=== PATIENT | female | born 1935 | race Caucasian/White ===

== ENCOUNTER 2017-10-25 09:33 | Outpatient (CLI) | payer MEDICARE ==
[~2017-10-25 09:33] MED LIST: ISOVUE-370 76%-LOCM 1 ML ONE
== END 2017-10-25 09:34 | disposition home or self-care (01) ==
LOC: BICCT 09:33
PROVIDERS: ATTEND Internal Medicine Cardiovascular Disease
DX: I73.9 Peripheral vascular disease, unspecified (principal); I77.810 Thoracic aortic ectasia; I70.0 Atherosclerosis of aorta; I77.1 Stricture of artery
CPT/HCPCS: 71275; 74174

== ENCOUNTER 2019-09-21 11:08 | Outpatient (CLI) | payer MEDICARE ==
--- NOTE | 2019-09-21 11:43 | RAD ---
LUMBAR SPINE SERIES 4 VIEWS: Date: 09/21/2019 HISTORY: Low back pain with pain down left leg. FINDINGS: Severe arthritic changes of the spine with marked degenerative disc narrowing at all vertebral body l evels and prominent osteophytic change. Slight scoliotic change to the spine is noted. Prominent dege nerative facet changes are noted. There are extensive vascular calcifications. IMPRESSION: Severe osteoarthritic changes of the spine. POS: [id number]
== END 2019-09-21 11:09 | disposition home or self-care (01) ==
LOC: TBSIIMAG 11:08
PROVIDERS: ATTEND Surgery
DX: M54.5 Low back pain (principal); M47.816 Spondylosis without myelopathy or radiculopathy, lumbar region
CPT/HCPCS: 72110

== ENCOUNTER 2019-10-12 08:57 | Outpatient (CLI) | payer MEDICARE ==
--- NOTE | 2019-10-12 10:25 | MRI ---
MR the lumbar spine without contrast: 10/12/2019 History: Low back pain extending down the left leg, lower extremity radiculopathy COMPARISON: None TECHNIQUE: Multiplanar multisequence MR images were obtained of lumbar spine without IV contrast FINDINGS: On the basis of 5 lumbar type vertebral bodies, conus medullaris terminates at theL1-2 level. Sagittal STIR imaging demonstrates no significant focal area of osseous marrow edema. Mild anterolisthesis at L4-5 measures 6 mm. T12-L1:There is disc space narrowing with disc desiccation. There is disc bulge with a small central disc herniation with slight superior migration. Mild associated central canal stenosis. Bilateral facet hypertrophy with mild bilateral neural foraminal stenosis. L1-2:Anterior and right lateral osteophyte formation. Bilateral facet hypertrophy. There is disc spac e narrowing with disc desiccation. There is a disc osteophyte complex with mild central canal stenosis. Mild left and moderate/severe right neural foraminal stenosis. L2-3:Bilateral facet hypertrophy and hypertrophy of the ligamentum flavum. Disc space narrowing with disc desiccation and disc bulge. Severe central canal stenosis with mass effect upon the nerve roots of the cauda equina. Mild right and moderate left neural foraminal stenosis. L3-4:Disc space narrowing with disc desiccation and vacuum disc formation. Disc bulge with severe jana tral canal stenosis. Prominent bilateral facet hypertrophy. Mild right and moderate left neural foraminal stenosis. L4-5:There is disc space narrowing with disc desiccation and disc bulge. Prominent bilateral facet hy pertrophy and hypertrophy of the ligamentum flavum. Severe central canal stenosis with mass effect upon nerve roots of the cauda equina. Mild/moderate bilateral neural foraminal stenosis. L5-S1:There is disc space narrowing with disc desiccation. Bilateral facet hypertrophy. Small central disc protrusion. Mild central canal stenosis. Severe right and mild left neural foraminal stenosis. Image retroperitoneal structures demonstratea T2 hyperintense lesion emanating from the upper pole of the left kidney measuring 5.5 cm, consistent with renal cyst. Additional medial lower pole left renal cyst measures 3.3 cm. IMPRESSION: Multilevel severe degenerative changes are noted within the lumbar spine as detailed above. This incl udes multilevel severe central canal stenosis at L2-3, L3-4, L4-5, as well as areas of multilevel neural foraminal stenosis.
== END 2019-10-12 08:58 | disposition home or self-care (01) ==
LOC: TBSIIMAG 08:57
PROVIDERS: ATTEND Physician Assistant Surgical
DX: M47.26 Other spondylosis with radiculopathy, lumbar region (principal); M48.061 Spinal stenosis, lumbar region without neurogenic claudication; M48.07 Spinal stenosis, lumbosacral region; M48.05 Spinal stenosis, thoracolumbar region
CPT/HCPCS: 72110; 72148

== ENCOUNTER 2021-01-06 07:46 | Outpatient (CLI) | payer MEDICARE | END 2021-01-06 07:47 | disposition home or self-care (01) | LOC: TBSIIMAG 07:46 | PROVIDERS: ATTEND Surgery | DX: M47.26 Other spondylosis with radiculopathy, lumbar region (principal); M48.061 Spinal stenosis, lumbar region without neurogenic claudication | CPT/HCPCS: 72148 ==

== ENCOUNTER 2021-09-10 08:00 | Outpatient (CLI) | payer MEDICARE | END 2021-09-10 08:01 | disposition home or self-care (01) | LOC: TBSIIMAG 08:00 | PROVIDERS: ATTEND Surgery | DX: M47.26 Other spondylosis with radiculopathy, lumbar region (principal); M48.062 Spinal stenosis, lumbar region with neurogenic claudication; M47.817 Spondylosis without myelopathy or radiculopathy, lumbosacral region | CPT/HCPCS: 72148 ==

== ENCOUNTER 2021-10-19 11:41 | Outpatient (CLI) | payer MEDICARE ==
[2021-10-19 13:06] LABS: Hemoglobin 10.6 g/dL (12.0-15.5); Mean Corpuscular HGB CONC 31.1 g/dL (32.0-36.0); Mean Corpuscular Hemoglobin 28.4 pg (27.0-33.0); Mean Corpuscular Volume 91.4 fl (81.6-98.3); Mean Platelet Volume 10.1 fl (7.4-10.4); Platelet Count 320 10x3/uL (150-450); Red Blood Cell (RBC) Count 3.73 10x6/uL (3.90-5.03); White Blood Cell (WBC) Count 9.3 10x3/uL (3.5-10.5)
[2021-10-19 13:32] LABS: Anion Gap 18 mmol/L (10-20); BUN (Urea Nitrogen) 36 mg/dL (9.8-20.1); Calc. Creatinine Clearance 0 mL/min (70-130); Calcium 9.3 mg/dL (7.8-10.44); Carbon Dioxide 22 mmol/L (23-31); Chloride 107 mmol/L (98-107); Glucose 92 mg/dL (83-110); Potassium 5.2 mmol/L (3.5-5.1); Sodium 142 mmol/L (136-145)
[2021-10-19 13:35] LABS: PTT 24.1 sec (22.0-33.0); Prothrombin Time 10.9 sec (9.5-12.1)
[2021-10-19 23:37] LABS: SARS-CoV-2 PCR by NAA Not Detected (NotDetected)
== END 2021-10-19 11:42 | disposition home or self-care (01) ==
LOC: LABBT 11:41
PROVIDERS: ATTEND Surgery
DX: Z01.818 Encounter for other preprocedural examination (principal); M51.16 Intervertebral disc disorders with radiculopathy, lumbar region; M48.062 Spinal stenosis, lumbar region with neurogenic claudication; Z20.822 Contact with and (suspected) exposure to COVID-19
CPT/HCPCS: 80048; 85027; 85610; 85730; 93005; U0003; U0005; 93010

== ENCOUNTER 2024-07-29 09:11 | Inpatient (IN) | payer MEDICARE ==
[2024-07-29 09:51] LABS: Actual Bicarbonate (HCO3v) 25.5 mEq/L (22-28); Analyzer IN Cardio ER; Base Excess 1.1 mEq/L (-2.0 to +3.0); Calcium, Ionized (venous) 1.05 mmol/L (1.16-1.32); Chloride (VBG) 98 mmol/L (98-106); Hematocrit-VBG 24 % (36.0-47.0); Hemoglobin (Hb) 8.2 g/dL (11.7-16.1); Sodium 133 mmol/L (133-146); pH (venous) 7.424 (7.32-7.43)
[2024-07-29] MEDS ORDERED: Ipratropium Bromide 2.5 ml Neb ONE ×2 (10:03→11:23)
[2024-07-29] MEDS ORDERED: Albuterol 2.5 MG (3 mL) NEB ONE ×2 (10:03→11:23)
[2024-07-29 10:15] LABS: Hematocrit 23.6 % (36.0-47.0); Hemoglobin 7.8 g/dL (12.0-16.0); Mean Corpuscular HGB CONC 33.1 g/dL (32.0-36.0); Mean Corpuscular Hemoglobin 33.8 pg (27.0-31.0); Mean Corpuscular Volume 102.2 fL (78.0-98.0); Mean Platelet Volume 10.5 fL (7.4-10.4); Platelet Count 90 10x3/uL (130-400); RBC Distribution Width 17.5 % (11.5-14.5); Red Blood Cell (RBC) Count 2.31 mill/uL (4.20-5.40)
[2024-07-29 10:18] LABS: ALT (SGPT) 14 U/L (8-55); AST (SGOT) 30 U/L (5-34); Albumin 2.9 g/dL (3.4-4.8); Alkaline Phosphatase 39 U/L (40-110); Anion Gap 15 mmol/L (10-20); BUN (Urea Nitrogen) 14 mg/dL (9.8-20.1); Bilirubin, Total 0.7 mg/dL (0.2-1.2); Calc. Creatinine Clearance 0 mL/min (70-130); Calcium 8.1 mg/dL (7.8-10.44); Carbon Dioxide 22 mmol/L (23-31); Chloride 100 mmol/L (98-107); Estimated GFR 57; Globulin 2.6 g/dL (2.4-3.5); Glucose 103 mg/dL (83-110); Potassium 3.1 mmol/L (3.5-5.1); Protein, Total 5.5 g/dL (5.8-8.1); Sodium 134 mmol/L (136-145)
[2024-07-29 10:30] LABS: Troponin I Less than 0.010 ng/mL (< 0.028)
[2024-07-29 10:57] LABS: Anisocytosis SLIGHT = 6-15 cells HPF (0-5); Band 2 % (5-11); Hypochromia MODERATE=16-30 cells HPF (0-5); Lymphocytes 16 % (21-51); Metamyelocyte 1 % (0-0); Monocytes 61 % (0-10); Neutrophil 4 % (42-75); Platelet Adequacy Comment Platelets Decreased; Polychromasia SLIGHT = 2-3 cells HPF (0-2); Reflex for Review?? YES; Smudge Cells 27.7 %; Tear Drops SLIGHT = 2-5 cells HPF (0-1)
[2024-07-29] MEDS ORDERED: Senokot S 8.6-50 MG TAB PO PRN (13:04)
[2024-07-29] MEDS ORDERED: Cyanocobalamin 1000 MCG/ML VIAL IM SCH (13:45)
[2024-07-29 14:08] LABS: Magnesium 1.4 mg/dL (1.6-2.6)
[2024-07-29] MEDS ORDERED: Glucagon 1 MG/ML KIT IM PRN (14:13)
[2024-07-29] MEDS ORDERED: Dextrose 50% Abboject 50 ML SYRINGE SLOW IVP PRN (14:13)
[2024-07-29] MEDS ORDERED: Dextrose 5% in Water 1,000 ML IV PRN (14:13)
[2024-07-29] MEDS: Potassium Chloride 20 MEQ TAB PO SCH (17:05)
[2024-07-29] MEDS: Furosemide 20 MG (2 mL) VIAL SLOW IVP SCH (17:05)
[2024-07-29] MEDS: Magnesium 2 GM/50 ML(in water) 2 GM in Premix 1 BAG IVPB SCH (17:06)
[2024-07-29] MEDS: LevoFLOXacin 750 mg/D5W 750 MG in Premix 1 BAG IVPB SCH (18:40)
[2024-07-29] MEDS: Isosorbide Mononitrate 30 MG ER.TAB PO SCH (21:23)
[2024-07-29] MEDS: Metoprolol Tartrate 50 MG TAB PO SCH (21:23)
[2024-07-29] MEDS: Amlodipine 5 MG TAB PO SCH (21:23)
[2024-07-29] MEDS: Famotidine 20 MG TAB PO SCH (21:24)
[2024-07-29] MEDS: Sertraline 100 MG TAB PO SCH (22:45)
[2024-07-30] MEDS: Ipratropium/Albuterol 3 ML NEB NEB PRN (02:01)
[2024-07-30 02:51] LABS: Influenza A by NAA Not Detected (NotDetected); Influenza B by NAA Not Detected (NotDetected); RSV by NAA DETECTED (NotDetected); SARS-CoV-2 NAA Rapid Test Not Detected (NotDetected)
[2024-07-30 04:38] LABS: Hematocrit 22.2 % (36.0-47.0); Hemoglobin 7.3 g/dL (12.0-16.0); Mean Corpuscular HGB CONC 32.9 g/dL (32.0-36.0); Mean Corpuscular Hemoglobin 33.5 pg (27.0-31.0); Mean Corpuscular Volume 101.8 fL (78.0-98.0); Mean Platelet Volume 10.1 fL (7.4-10.4); Platelet Count 78 10x3/uL (130-400); RBC Distribution Width 17.4 % (11.5-14.5); Red Blood Cell (RBC) Count 2.18 mill/uL (4.20-5.40)
[2024-07-30 04:53] LABS: Anion Gap 14 mmol/L (10-20); BUN (Urea Nitrogen) 14 mg/dL (9.8-20.1); Calc. Creatinine Clearance 52 mL/min (70-130); Calcium 7.6 mg/dL (7.8-10.44); Carbon Dioxide 22 mmol/L (23-31); Chloride 101 mmol/L (98-107); Estimated GFR 55; Glucose 127 mg/dL (83-110); Potassium 3.3 mmol/L (3.5-5.1); Sodium 134 mmol/L (136-145)
[2024-07-30 05:20] LABS: Anisocytosis SLIGHT = 6-15 cells HPF (0-5); Band 1 % (5-11); Eosinophils 1 % (0-10); Hypochromia SLIGHT = 6-15 cells HPF (0-5); Lymphocytes 33 % (21-51); Macrocytosis SLIGHT = 6-15 cells HPF (0-5); Metamyelocyte 2 % (0-0); Monocytes 47 % (0-10); Myelocyte 4 % (0-0); Neutrophil 5 % (42-75); Nucleated RBC (Manual Ct) 2 % (0); Platelet Adequacy Comment Platelets Decreased; Polychromasia SLIGHT = 2-3 cells HPF (0-2); Promyelocytes 1 % (0-0); Reactive Lymphocytes 6 % (0-10); Smudge Cells 22.4 %; Target Cells SLIGHT = 2-5 cells HPF (0-1); Tear Drops SLIGHT = 2-5 cells HPF (0-1)
[2024-07-30] MEDS ORDERED: Electrolyte Replacement Protocol 1 EACH FS PRN (05:37)
[2024-07-30] MEDS: Furosemide 40 MG (4 mL) VIAL SLOW IVP SCH (06:21)
[2024-07-30] MEDS: Acetaminophen 325 MG TAB PO PRN (06:21)
[2024-07-30] MEDS: Potassium Chloride 20 MEQ TAB PO SCH ×2 (06:22→09:02)
[2024-07-30 07:36] LABS: Iron 66 ug/dL (50-170); Iron Binding Capacity, Total 231 mcg/dL (265-497)
[2024-07-30] MEDS ORDERED: Clopidogrel Bisulfate 75 MG TAB PO SCH (09:00)
[2024-07-30] MEDS ORDERED: Cyanocobalamin 1000 MCG/ML VIAL IM SCH (09:00)
[2024-07-30] MEDS ORDERED: Sertraline 100 MG TAB PO SCH (09:00)
[2024-07-30] MEDS: Ezetimibe 10 MG TAB PO SCH (09:02)
[2024-07-30] MEDS: Atorvastatin Calcium 20 MG TAB PO SCH (09:02)
[2024-07-30] MEDS: Fluconazole 100 MG TAB PO SCH (09:02)
[2024-07-30] MEDS: Ferrous Sulfate 325 MG TAB PO SCH (09:03)
[2024-07-30] MEDS: Fenofibrate Nanocrystallized 145 MG TAB PO SCH (09:03)
[2024-07-30] MEDS: Aspirin Chewable 81 MG TAB PO SCH (09:03)
[2024-07-30] MEDS: Enoxaparin 40 MG (0.4 mL) SYRINGE SC SCH (09:03)
[2024-07-30] MEDS: LevoFLOXacin 500 mg/D5W 500 MG in Premix 1 BAG IVPB SCH (09:34)
[2024-07-30] MEDS: Ipratropium/Albuterol 3 ML NEB NEB SCH (10:09)
[2024-07-30] MEDS: Benzonatate 100 MG CAP PO SCH (13:30)
[2024-07-30 16:31] LABS: Fibrinogen 330 mg/dL (253-463)
[2024-07-30 16:32] LABS: INR-International Normal Ratio 1.2; PTT 29.7 sec (22.9-36.1)
[2024-07-30 16:33] LABS: D-Dimer Test 1.39 mcg/mL (0.27-0.43)
[2024-07-30 16:59] LABS: Platelet Count 80 10x3/uL (130-400)
[2024-07-30] MEDS: guaiFENesin/DM ER PO SCH (20:39)
[2024-07-31 03:58] LABS: Hematocrit 25.7 % (36.0-47.0); Hemoglobin 8.5 g/dL (12.0-16.0); Mean Corpuscular HGB CONC 33.1 g/dL (32.0-36.0); Mean Corpuscular Hemoglobin 31.8 pg (27.0-31.0); Mean Corpuscular Volume 96.3 fL (78.0-98.0); Mean Platelet Volume 9.9 fL (7.4-10.4); Platelet Count 68 10x3/uL (130-400); RBC Distribution Width 22.1 % (11.5-14.5); Red Blood Cell (RBC) Count 2.67 mill/uL (4.20-5.40)
[2024-07-31 03:59] LABS: Anion Gap 13 mmol/L (10-20); BUN (Urea Nitrogen) 18 mg/dL (9.8-20.1); Calc. Creatinine Clearance 50 mL/min (70-130); Calcium 7.7 mg/dL (7.8-10.44); Carbon Dioxide 25 mmol/L (23-31); Chloride 103 mmol/L (98-107); Estimated GFR 53; Glucose 138 mg/dL (83-110); Potassium 3.9 mmol/L (3.5-5.1); Sodium 137 mmol/L (136-145)
[2024-07-31 08:43] LABS: Anisocytosis MODERATE=16-30 cells HPF (0-5); Band 1 % (5-11); Eosinophils 2 % (0-10); Lymphocytes 14 % (21-51); Monocytes 71 % (0-10); Neutrophil 5 % (42-75); Nucleated RBC (Manual Ct) 1 % (0); Platelet Adequacy Comment Platelets Decreased; Polychromasia SLIGHT = 2-3 cells HPF (0-2); Reactive Lymphocytes 1 % (0-10); Reflex for Review?? YES; Smudge Cells 34.9 %
[2024-08-01 09:06] LABS: Hematocrit 29.3 % (36.0-47.0); Hemoglobin 9.8 g/dL (12.0-16.0); Mean Corpuscular HGB CONC 33.4 g/dL (32.0-36.0); Mean Corpuscular Hemoglobin 32.2 pg (27.0-31.0); Mean Corpuscular Volume 96.4 fL (78.0-98.0); Mean Platelet Volume 10.2 fL (7.4-10.4); Platelet Count 71 10x3/uL (130-400); RBC Distribution Width 21.6 % (11.5-14.5); Red Blood Cell (RBC) Count 3.04 mill/uL (4.20-5.40)
[2024-08-01 09:13] LABS: ALT (SGPT) 15 U/L (8-55); AST (SGOT) 29 U/L (5-34); Albumin 2.5 g/dL (3.4-4.8); Alkaline Phosphatase 46 U/L (40-110); Anion Gap 15 mmol/L (10-20); BUN (Urea Nitrogen) 22 mg/dL (9.8-20.1); Bilirubin, Total 0.9 mg/dL (0.2-1.2); Calc. Creatinine Clearance 46 mL/min (70-130); Calcium 8.1 mg/dL (7.8-10.44); Carbon Dioxide 21 mmol/L (23-31); Chloride 102 mmol/L (98-107); Estimated GFR 48; Globulin 2.8 g/dL (2.4-3.5); Glucose 198 mg/dL (83-110); Potassium 3.8 mmol/L (3.5-5.1); Protein, Total 5.3 g/dL (5.8-8.1); Sodium 134 mmol/L (136-145)
[2024-08-01 11:10] LABS: Burr Cells SLIGHT = 2-5 cells HPF (0-1); Lymphocytes 9 % (21-51); Metamyelocyte 1 % (0-0); Monocytes 75 % (0-10); Neutrophil 5 % (42-75); Platelet Adequacy Comment Platelets Decreased; Polychromasia SLIGHT = 2-3 cells HPF (0-2); Reactive Lymphocytes 1 % (0-10); Tear Drops SLIGHT = 2-5 cells HPF (0-1)
[2024-08-01] MEDS ORDERED: Aluminum & Magnesium Hydroxide 60 ML, diphenhydrAMINE 150 MG, Lidocaine 2% Viscous Solu... SSW PRN (17:39)
[2024-08-01] MEDS: Diclofenac 1% 50 GM TOPICAL GEL TP SCH (21:55)
[2024-08-01] MEDS: dilTIAZem 25 MG/5 ML VIAL SLOW IVP SCH (21:55)
[2024-08-01] MEDS: Diltiazem HCl/D5W 125 MG in Premix 1 BAG IVPB SCH (23:00)
[2024-08-02 04:05] LABS: Hematocrit 27.4 % (36.0-47.0); Hemoglobin 9.2 g/dL (12.0-16.0); Mean Corpuscular HGB CONC 33.6 g/dL (32.0-36.0); Mean Corpuscular Hemoglobin 32.5 pg (27.0-31.0); Mean Corpuscular Volume 96.8 fL (78.0-98.0); Mean Platelet Volume 10.5 fL (7.4-10.4); Platelet Count 58 10x3/uL (130-400); Red Blood Cell (RBC) Count 2.83 mill/uL (4.20-5.40)
[2024-08-02 04:12] LABS: Anion Gap 13 mmol/L (10-20); BUN (Urea Nitrogen) 23 mg/dL (9.8-20.1); Calc. Creatinine Clearance 44 mL/min (70-130); Calcium 7.9 mg/dL (7.8-10.44); Carbon Dioxide 23 mmol/L (23-31); Chloride 101 mmol/L (98-107); Estimated GFR 46; Glucose 150 mg/dL (83-110); Potassium 3.8 mmol/L (3.5-5.1); Sodium 133 mmol/L (136-145)
[2024-08-02 04:29] LABS: Anisocytosis SLIGHT = 6-15 cells HPF (0-5); Blast 13 % (0-0); Hypochromia SLIGHT = 6-15 cells HPF (0-5); Lymphocytes 10 % (21-51); Macrocytosis SLIGHT = 6-15 cells HPF (0-5); Monocytes 73 % (0-10); Neutrophil 4 % (42-75); Nucleated RBC (Manual Ct) 1 % (0); Platelet Adequacy Comment Platelets Decreased; Polychromasia SLIGHT = 2-3 cells HPF (0-2); Reactive Lymphocytes 1 % (0-10); Target Cells SLIGHT = 2-5 cells HPF (0-1)
[2024-08-02] MEDS: Famotidine 20 MG TAB PO SCH (09:32)
[2024-08-02] MEDS ORDERED: Electrolyte Replacement Protocol FS PRN (14:15)
[2024-08-02] MEDS ORDERED: Benzonatate 100 MG CAP PO SCH (19:00)
[2024-08-02] MEDS: Cefepime 2 GM in Sodium Chloride 0.9% 100 ML IVPB SCH (20:07)
[2024-08-02] MEDS: Doxycycline 100 MG CAP PO SCH (20:07)
[2024-08-03 04:31] LABS: Anion Gap 13 mmol/L (10-20); BUN (Urea Nitrogen) 28 mg/dL (9.8-20.1); Calc. Creatinine Clearance 43 mL/min (70-130); Calcium 8.1 mg/dL (7.8-10.44); Carbon Dioxide 23 mmol/L (23-31); Chloride 99 mmol/L (98-107); Estimated GFR 44; Glucose 145 mg/dL (83-110); Hematocrit 24.8 % (36.0-47.0); Hemoglobin 8.4 g/dL (12.0-16.0); Mean Corpuscular HGB CONC 33.9 g/dL (32.0-36.0); Mean Corpuscular Hemoglobin 31.9 pg (27.0-31.0); Mean Corpuscular Volume 94.3 fL (78.0-98.0); Mean Platelet Volume 10.7 fL (7.4-10.4); Platelet Count 55 10x3/uL (130-400); Potassium 4.1 mmol/L (3.5-5.1); RBC Distribution Width 20.7 % (11.5-14.5); Red Blood Cell (RBC) Count 2.63 mill/uL (4.20-5.40); Sodium 131 mmol/L (136-145)
[2024-08-03 05:55] LABS: Anisocytosis SLIGHT = 6-15 cells HPF (0-5); Eosinophils 1 % (0-10); Giant Platelets 0.9 % (0-5); Lymphocytes 13 % (21-51); Monocytes 67 % (0-10); Myelocyte 3 % (0-0); Neutrophil 4 % (42-75); Nucleated RBC (Manual Ct) 2 % (0); Platelet Adequacy Comment Platelets Decreased; Polychromasia SLIGHT = 2-3 cells HPF (0-2); Smudge Cells 58.5 %
[2024-08-04 04:48] LABS: Hematocrit 23.5 % (36.0-47.0); Hemoglobin 8.2 g/dL (12.0-16.0); Mean Corpuscular HGB CONC 34.9 g/dL (32.0-36.0); Mean Corpuscular Hemoglobin 32.4 pg (27.0-31.0); Mean Corpuscular Volume 92.9 fL (78.0-98.0); Mean Platelet Volume 9.8 fL (7.4-10.4); Platelet Count 51 10x3/uL (130-400); RBC Distribution Width 20.6 % (11.5-14.5); Red Blood Cell (RBC) Count 2.53 mill/uL (4.20-5.40)
[2024-08-04 05:13] LABS: Anion Gap 14 mmol/L (10-20); BUN (Urea Nitrogen) 35 mg/dL (9.8-20.1); Calc. Creatinine Clearance 41 mL/min (70-130); Carbon Dioxide 21 mmol/L (23-31); Chloride 101 mmol/L (98-107); Estimated GFR 43; Glucose 147 mg/dL (83-110); Potassium 4.5 mmol/L (3.5-5.1); Sodium 131 mmol/L (136-145)
[2024-08-04 05:28] LABS: Hypochromia SLIGHT = 6-15 cells HPF (0-5); Lymphocytes 11 % (21-51); Monocytes 73 % (0-10); Myelocyte 2 % (0-0); Neutrophil 4 % (42-75); Nucleated RBC (Manual Ct) 1 % (0); Platelet Adequacy Comment Platelets Decreased; Polychromasia SLIGHT = 2-3 cells HPF (0-2); Reactive Lymphocytes 1 % (0-10); Smudge Cells 79.6 %; Tear Drops SLIGHT = 2-5 cells HPF (0-1)
[2024-08-04] MEDS: Guaifenesin DM 100-10/5 ML UDCUP PO PRN (14:56)
[2024-08-04 16:22] VITALS: BMI 30.5
[2024-08-05 05:20] LABS: Hematocrit 21.8 % (36.0-47.0); Hemoglobin 7.6 g/dL (12.0-16.0); Mean Corpuscular HGB CONC 34.9 g/dL (32.0-36.0); Mean Corpuscular Hemoglobin 32.3 pg (27.0-31.0); Mean Corpuscular Volume 92.8 fL (78.0-98.0); Platelet Count 50 10x3/uL (130-400); RBC Distribution Width 20.9 % (11.5-14.5); Red Blood Cell (RBC) Count 2.35 mill/uL (4.20-5.40)
[2024-08-05 05:23] LABS: Anion Gap 14 mmol/L (10-20); BUN (Urea Nitrogen) 36 mg/dL (9.8-20.1); Calc. Creatinine Clearance 43 mL/min (70-130); Calcium 8.2 mg/dL (7.8-10.44); Carbon Dioxide 20 mmol/L (23-31); Chloride 102 mmol/L (98-107); Estimated GFR 43; Glucose 157 mg/dL (83-110); Potassium 4.7 mmol/L (3.5-5.1); Sodium 131 mmol/L (136-145)
[2024-08-05] MEDS: Furosemide 40 MG (4 mL) VIAL SLOW IVP SCH (06:57)
[2024-08-05 07:20] LABS: Anisocytosis MARKED = >30 cells HPF (0-5); Band 3 % (5-11); Eosinophils 1 % (0-10); Hypochromia MODERATE=16-30 cells HPF (0-5); Lymphocytes 18 % (21-51); Macrocytosis MODERATE=16-30 cells HPF (0-5); Microcytosis SLIGHT = 6-15 cells HPF (0-5); Monocytes 70 % (0-10); Neutrophil 2 % (42-75); Platelet Adequacy Comment Significant Decrease; Poikilocytosis SLIGHT = 6-15 cells HPF (0-5); Polychromasia SLIGHT = 2-3 cells HPF (0-2); Smudge Cells 48.5 %
[2024-08-05 17:07] VITALS: BMI 29.7
[2024-08-06 05:54] LABS: Hematocrit 21.8 % (36.0-47.0); Hemoglobin 7.4 g/dL (12.0-16.0); Mean Corpuscular HGB CONC 33.9 g/dL (32.0-36.0); Mean Corpuscular Hemoglobin 31.5 pg (27.0-31.0); Mean Corpuscular Volume 92.8 fL (78.0-98.0); Mean Platelet Volume 11.4 fL (7.4-10.4); Platelet Count 51 10x3/uL (130-400); RBC Distribution Width 21.3 % (11.5-14.5); Red Blood Cell (RBC) Count 2.35 mill/uL (4.20-5.40)
[2024-08-06 06:23] LABS: Anisocytosis SLIGHT = 6-15 cells HPF (0-5); Hypochromia SLIGHT = 6-15 cells HPF (0-5); Lymphocytes 11 % (21-51); Monocytes 81 % (0-10); Myelocyte 1 % (0-0); Neutrophil 2 % (42-75); Nucleated RBC (Manual Ct) 1 % (0); Platelet Adequacy Comment Platelets Decreased; Polychromasia SLIGHT = 2-3 cells HPF (0-2); Smudge Cells 41.1 %
[2024-08-06 06:38] LABS: Anion Gap 16 mmol/L (10-20); BUN (Urea Nitrogen) 41 mg/dL (9.8-20.1); Calc. Creatinine Clearance 34 mL/min (70-130); Calcium 8.3 mg/dL (7.8-10.44); Carbon Dioxide 18 mmol/L (23-31); Chloride 103 mmol/L (98-107); Estimated GFR 34; Glucose 161 mg/dL (83-110); Potassium 4.4 mmol/L (3.5-5.1); Sodium 133 mmol/L (136-145)
[2024-08-06] MEDS: Enoxaparin 30 MG (0.3 mL) SYRINGE SC SCH (09:20)
[2024-08-06] MEDS: Insulin Regular, Human 100 UNIT/ML 10 ML VIAL SC PRN (10:34)
[2024-08-06] MEDS: Diltiazem HCl/D5W 125 MG in Premix 1 BAG IVPB SCH (18:22)
[2024-08-06 19:42] VITALS: BP 101/76
[2024-08-07 04:19] VITALS: TEMP 98
[2024-08-07] MEDS: Metoprolol Tartrate 5 MG (5 mL) VIAL IVP SCH (04:28)
[2024-08-07 06:48] LABS: #Basophils 0.16 10x3/uL (0.0-0.2); %Basophils 0.2 % (0.0-1.0); %Eosinophils 0.2 % (0.0-10.0); %Lymphocytes 8.1 % (21.0-51.0); %Monocytes 83.3 % (0.0-10.0); %Neutrophils 1.7 % (42.0-75.0); Hematocrit 31.3 % (36.0-47.0); Hemoglobin 10.6 g/dL (12.0-16.0); Mean Corpuscular HGB CONC 33.9 g/dL (32.0-36.0); Mean Corpuscular Hemoglobin 30.5 pg (27.0-31.0); Mean Corpuscular Volume 89.9 fL (78.0-98.0); Mean Platelet Volume 9.8 fL (7.4-10.4); Platelet Count 15 10x3/uL (130-400); RBC Distribution Width 24.1 % (11.5-14.5); Red Blood Cell (RBC) Count 3.48 mill/uL (4.20-5.40)
[2024-08-07] MEDS: Cefepime 1 GM in Sodium Chloride 0.9% 100 ML IVPB SCH (09:01)
[2024-08-07] MEDS: Lorazepam 2 MG/ML VIAL SLOW IVP PRN (09:06)
[2024-08-07] MEDS: Morphine 4 MG/ML VIAL SLOW IVP PRN (09:07)
== END 2024-08-07 10:40 | disposition expired | DRG 193 ==
LOC: ERS 09:11 → 2NO 13:14 → CCU 08-06 07:43
PROVIDERS: ADMIT Family Medicine; ATTEND Internal Medicine
PROC: 3E03329 Introduction of Other Anti-infective into Peripheral Vein, Percutaneous Approach (ICD-10-PCS; 2024-07-29)
PROC: 30233N1 Transfusion of Nonautologous Red Blood Cells into Peripheral Vein, Percutaneous Approach (ICD-10-PCS; principal; 2024-07-30)
PROC: 5A0935A Assistance with Respiratory Ventilation, Less than 24 Consecutive Hours, High Flow/Velocity Cannula (ICD-10-PCS; 2024-08-06)
PROC: 5A09357 Assistance with Respiratory Ventilation, Less than 24 Consecutive Hours, Continuous Positive Airway Pressure (ICD-10-PCS; 2024-08-06)
DX: J12.9 Viral pneumonia, unspecified (principal); I50.33 Acute on chronic diastolic (congestive) heart failure; J96.01 Acute respiratory failure with hypoxia; D61.818 Other pancytopenia; I48.92 Unspecified atrial flutter; C94.6 Myelodysplastic disease, not elsewhere classified; E87.1 Hypo-osmolality and hyponatremia; D84.9 Immunodeficiency, unspecified; J06.9 Acute upper respiratory infection, unspecified; B97.4 Respiratory syncytial virus as the cause of diseases classified elsewhere; J98.01 Acute bronchospasm; Z66 Do not resuscitate; I25.10 Atherosclerotic heart disease of native coronary artery without angina pectoris; I35.0 Nonrheumatic aortic (valve) stenosis; I50.9 Heart failure, unspecified; I11.0 Hypertensive heart disease with heart failure; D53.9 Nutritional anemia, unspecified; J15.9 Unspecified bacterial pneumonia; I44.0 Atrioventricular block, first degree; D69.6 Thrombocytopenia, unspecified; E11.51 Type 2 diabetes mellitus with diabetic peripheral angiopathy without gangrene; E87.6 Hypokalemia; E83.42 Hypomagnesemia; I48.0 Paroxysmal atrial fibrillation; M47.816 Spondylosis without myelopathy or radiculopathy, lumbar region; E78.5 Hyperlipidemia, unspecified; K12.1 Other forms of stomatitis; F41.9 Anxiety disorder, unspecified; F32.9 Major depressive disorder, single episode, unspecified; Z95.818 Presence of other cardiac implants and grafts; Z88.8 Allergy status to other drugs, medicaments and biological substances; Z90.710 Acquired absence of both cervix and uterus; Z98.890 Other specified postprocedural states; Z85.42 Personal history of malignant neoplasm of other parts of uterus; R41.0 Disorientation, unspecified; M25.562 Pain in left knee; M71.22 Synovial cyst of popliteal space [Baker], left knee; G47.33 Obstructive sleep apnea (adult) (pediatric)
CPT/HCPCS: 0241U; 36415; 36416; 36430; 71045; 71046; 80048; 80053; 82274; 82607; 82728; 82805; 83010; 83540; 83550; 83605; 83615; 83735; 83880; 84484; 85025; 85046; 85049; 85060; 85300; 85362; 85384; 85610; 85730; 86850; 86900; 86901; 87428; 88184; 88185; 93005; 93010; 93306; 93970; 94640; 94660; J0692; J1650; J1815; J1940; J1956; J2060; J2272; J3475; J7611; J7620; J7644; P9016; Q0163